=== PATIENT | male | born 1990 | race Caucasian/White ===

== ENCOUNTER 2019-03-12 23:15 | Emergency (ER) | payer OTHER, SELFPAY ==
[2019-03-12 23:16] VITALS: BP 132/88; PULSE 82; RESP 15; TEMP 36.7; O2SAT 97; BMI 28.3
--- NOTE | 2019-03-12 23:45 | ED.DCSUM_ITS ---
History of Present Illness Chief Complaint: GI Bleed Detail of Chief Complaint: rectal bleeding Informant: Patient - Abdominal Pain/Flank Pain Onset: Today - 1 hr ago Context: Sudden Onset - Nausea/Vomiting/Emesis GI Symptom: Nausea. Negative for: Vomiting Onset: Today Severity: Mild - Diarrhea/Melena/Hematochezia GI Symptom: Hematochezia. Negative for: Diarrhea, Melena Onset: Today - x 1 Associated Symptoms: Negative for: Dysuria, Frequency, Hematuria, Urgency Narrative: Patient is in the he was on the way from [facility] to [place] where he is stationed and suddenly had one bout of major lower GI bleeding. He has never had any blood in his stool before, no recent melena, no nausea or vomiting until just recently started feeling a little nauseated. States his abdomen started feeling queasy earlier today but nothing major. He denies any pains right now. He felt a little lightheaded earlier but no near syncopal episodes and now feels okay. No recent injuries. Takes no drugs or medications and has no known medical problems. There is no family history of a familial polyposis or colon cancer that he knows of, or inflammatory bowel disease. Past Medical History - Allergies and Home Meds Allergies/Adverse Reactions: Allergies No Known Allergies Allergy (Verified 03/12/19 23:20) Primary Care Physician: [facility] Doctor,Out of [NON-STAFF] - As soon as possible Past Medical History: None Surgical History: - - R knee lateral release 11/2018 Smoking Status: Current some day smoker Drugs: None Review of Systems General: Reports: Malaise. Denies: Chills, Fever, Sweats Eyes: Denies: Visual changes - bilaterally, Diplopia ENT: Denies: Rhinorrhea, Sore throat Cardiovascular: Denies: Chest pain, Palpitations Respiratory: Denies: Dyspnea, Cough, Dyspnea on exertion Gastrointestinal: Reports: Nausea. Denies: Abdominal pain, Vomiting, Diarrhea, Melena, Hematochezia Genitourinary: Denies: Dysuria, Hematuria, Frequency Musculoskeletal: Denies: Back pain, Extremity Pain Skin: Denies: Rash, Wounds Neurological: Denies: Headache, Weakness, Numbness Physical Exam Vital Signs/Narrative: Vital Signs Temp Pulse Resp BP Pulse Ox 03/12/19 23:16 98.1 F 82 15 132/88 H 97 Inital Vital Signs reviewed: Yes General: Well nourished, Well developed, No Acute Distress Head: Normocephalic, Atraumatic Eyes: Perrl, EOMI ENT: Moist mucous membranes, No rhinorrhea Neck: Supple, Nontender Cardiovascular: Regular rate, Regular rhythm, No murmurs Respiratory: No distress, CTA bilaterally, Chest nontender Abdomen: Soft, Nondistended, Normal bowel sounds, No masses, Tender - mild LLQ only. Negative for: Guarding, Rebound tenderness Back: Nontender, Normal Inspection Extremities: Nontender, No edema Skin: Normal color, No rash, No Trauma Neurological: Alert, Oriented x3, Cranial nerves II-XII grossly intact, Normal Strength, Normal Sensation Psychological: Normal affect, Normal Mood Diagnostic/Tx/Re-eval Impressions Abdomen/Pelvis CT 03/13/19 00:01 IMPRESSION: No acute abdominopelvic abnormality. Individualized dose optimization techniques were used for this CT. at 0034 Reported and signed by: Augustina Shepard MD Electronically Signed: Augustina Shepard MD at 0:34 EDT Tel , Service support , 03/13/19 00:01 Abdomen/Pelvis W IV Cont ONLY [CT] Stat Laboratory Results 03/12/19 03/12/19 23:50 23:50 WBC 7.0 RBC 4.80 Hgb 14.5 Hct 42.0 MCV 87.5 MCH 30.2 MCHC 34.5 RDW Std Deviation 39.4 RDW Coeff of Deana 12.2 Plt Count 220 MPV 9.8 Immature Gran % (Auto) 0.300 Neut % (Auto) 44.5 L Lymph % (Auto) 39.6 Orange % (Auto) 12.1 H Eos % (Auto) 2.9 Baso % (Auto) 0.6 Absolute Neuts (auto) 3.1 Absolute Lymphs (auto) 2.76 Absolute Nucleated RBC 0.00 Nucleated RBC % 0 Sodium 137 Potassium 4.0 Chloride 107 Carbon Dioxide 27.0 Anion Gap 3 L BUN 17 Creatinine 0.84 Estim Creat Clear Calc 137.60 Est GFR (MDRD) Af Amer 142 Est GFR (MDRD) Non-Af 117 BUN/Creatinine Ratio 20.3 H Glucose 94 Calcium 8.6 - Medical Decision Making Work-up is unremarkable. There is no supporting ancillary testing for upper GI source, anemia, diverticulosis, mass, or any other obvious etiology on CT, which was normal. His vital signs remained normal. He had another bowel movement while in the emergency department and had a very small amount of blood, indicating that this is improving. The source of the bleeding is unknown, but the differential does include polyposis, AVM, inflammatory bowel disease, among other potential etiologies but infection is thought not to be likely. I offered observation here in the emergency department for longer, since they are in the middle of a long trip, and if he continues to have bleeding or evidence that he has active bleeding going on, admission to the hospital would be warranted. They appreciate the offer but prefer to continue on their way for now. He is well at discharge. He was observed for a total of 4.5 hours in the emergency department and clinically was well the entire time. ED Disposition - Plan for ED Patient: Disposition: Home or Assisted Living Diagnosis: Lower GI bleeding Instructions: RECTAL BLEED, Stable Referrals: [facility],Out of [NON-STAFF] - As soon as possible
[2019-03-12 23:56] LABS: Absolute Lymphocyte Count 2.76 X10^3/uL (0.83-4.51); Absolute Neutrophil Count 3.1 X10^3/uL (2.0-7.7); Basophil# 0.04 X10^3/uL; Basophil% 0.6 % (0-1); Eosinophils% 2.9 % (0-5); Hemoglobin 14.5 g/dL (13.0-16.5); Lymphocyte # 2.76 X10^3/ul (4.0); Lymphocyte % 39.6 % (19-41); Mean Corp Hgb Conc 34.5 g/dL (32-36); Mean Corpuscular Hgb 30.2 pg (27.0-32.0); Mean Corpuscular Volume 87.5 fL (80-94); Mean Platelet Vol. 9.8 fl (6.2-12.0); Monocyte# 0.84 X10^3/uL; Monocyte% 12.1 % (0-10); NRBC Flagged by Analyzer 0 % (0-5); Neutrophil # 3.11 X10^3/uL (2.7-7.7); Neutrophil % 44.5 % (47-70); Platelet Count 220 K/mm3 (150-450); RBC Distribution Width CV 12.2 % (11.6-14.6); RBC Distribution Width SD 39.4 fl (35.1-43.9)
--- NOTE | 2019-03-13 00:01 | CT_ITS ---
HISTORY: LLQ PAIN. LOWER GI BLEEDING. ADDITIONAL HISTORY: None provided. TECHNIQUE: CT images were obtained of the abdomen and pelvis with 100 ml of Isovue 300 IV contrast. Enteric contrast was not given. A radiation dose optimization technique was used for this scan. Number of images including paperwork: [id number] COMPARISON: None FINDINGS: LOWER THORAX: No consolidation or pleural effusion. LIVER: No concerning focal lesion. GALLBLADDER: No radiopaque calculi. BILE DUCTS: No significant biliary dilatation. SPLEEN: Unremarkable. PANCREAS: Unremarkable. ADRENAL GLANDS: Unremarkable. KIDNEYS/URETERS: Unremarkable. BOWEL: No bowel obstruction. No significant bowel wall thickening. No localized inflammation. APPENDIX: No evidence of appendicitis. FREE FLUID: No significant free fluid. FREE AIR: None. LYMPH NODES: No pathologic appearing adenopathy. PERITONEUM, RETROPERITONEUM AND MESENTERY: Otherwise unremarkable. VASCULATURE: Unremarkable as imaged. PELVIS: Unremarkable bladder. ABDOMINAL WALL: Unremarkable. OSSEOUS AND SOFT TISSUE STRUCTURES: No acute skeletal findings. CT/Abdomen/Pelvis W IV Cont ONLY IMPRESSION: No acute abdominopelvic abnormality. Individualized dose optimization techniques were used for this CT. at 0034 Reported and signed by: Augustina Shepard MD Electronically Signed: Augustina Shepard MD at 0:34 EDT Tel , Service support ,
[2019-03-13 00:10] LABS: Anion Gap 3 (5-15); BUN 17 mg/dL (7-18); BUN/Creat Ratio 20.3 RATIO (10-20); Calcium,Total 8.6 mg/dL (8.5-10.1); Chloride 107 mmol/L (98-107); Creatinine, Serum 0.84 mg/dL (0.70-1.30); EST Glomerular Filtration Rate 117 mL/min (>60); Est Glom Filt Rate - Afr Amer 142 mL/min (>60); Glucose 94 mg/dL (74-106); Sodium Level 137 mmol/L (136-145)
[2019-03-13] MEDS: 0.9% Normal Saline 1,000 ML 999 ML IV (00:22)
[2019-03-13] MEDS: Ondansetron 4 MG/2 ML Vial IV (00:22)
[2019-03-13 03:00] VITALS: BP 105/70; PULSE 69; RESP 18; O2SAT 96
[2019-03-13 03:29] VITALS: BP 105/91; BP 111/75; BP 112/75; PULSE 72; PULSE 74; PULSE 77
[2019-03-13 03:47] VITALS: BP 118/79; PULSE 67; RESP 18; O2SAT 97
== END 2019-03-13 04:01 | disposition home or self-care (01) ==
PROVIDERS: Emergency Provider Emergency Medicine
DX: K92.1 Melena (principal); R53.81 Other malaise; R11.0 Nausea; F17.200 Nicotine dependence, unspecified, uncomplicated
CPT/HCPCS: 74177; 80048; 85025; 96361; 96374; 99284; J7030; Q9967; A4216; J2405